=== PATIENT | male | born 1930 | race Caucasian/White ===

== ENCOUNTER → 2016-05-30 15:36 | Outpatient (CLI) | payer MEDICARE | END | disposition home or self-care (01) | LOC: D.LABREF 15:36 | DX: L98.9 Disorder of the skin and subcutaneous tissue, unspecified (principal) ==

== ENCOUNTER 2017-11-12 06:02 | Inpatient (IN) | payer MEDICARE ==
[2017-11-12] VITALS (22 sets, daily range): BP systolic 62–117; BP diastolic 46–71
[~2017-11-12] VITALS: Ht 177.8 cm; Wt 105.5 kg
--- NOTE | ~2017-11-12 | HP ---
PATIENT: NAZIA MARK MEDICAL RECORD: [id number] ACCOUNT: [id number] LOCATION:[facility] D.2310 : 29 ADMISSION DATE: 11/12/17 PCP: MARISSA CARRANZA DO HISTORY AND PHYSICAL EXAMINATION DATE OF ADMISSION: 11/12/2017 CHIEF COMPLAINT: Pain in the back. HISTORY OF PRESENT ILLNESS: The patient is an 87-year-old gentleman who lives alone. Apparently, he had fallen yesterday, reaching to get a glass of water, fell backwards. He did phone his niece, who brought him a walker over. The patient apparently called his niece at 4:30 this morning and states he was in excruciating pain. He presented to the Emergency Room, where he was found to have a T8 as well as a sacral fracture. It was felt the patient should be admitted. He was also found to have a sodium level of 114. PAST MEDICAL HISTORY: His past history is significant in that he has history of having atrial fibrillation. He has also had BPH. He has had a tonsillectomy. He has had cardioversion in 2014. He has also had history of chronic kidney disease. FAMILY HISTORY: Mother of brain tumor in her 50s. Father had prostate cancer, in his 80s. SOCIAL HISTORY: Born and raised in [place], [place]. 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 He did move from [facility] to [place] 3 years ago. He does live independently. HABITS: The patient states he had been a smoker and a drinker many years ago, but has stopped. ALLERGIES: No known drug allergies. MEDICATIONS: Include allopurinol 100 mg one p.o. daily, Cartia XT 120 mg once a day, finasteride 5 mg daily, sotalol 80 mg twice daily, and Flomax 0.4 mg daily. REVIEW OF SYSTEMS: CONSTITUTIONAL: He denies any headache, seizure, or syncope. Denies change in visual or auditory acuity. PULMONARY: He denies any shortness of breath, cough, congestion, history of TB, asthma, or bronchitis. CARDIOVASCULAR: He has had no chest pain, palpitation, PND, or orthopnea. GASTROINTESTINAL: No chronic nausea, vomiting, melena, or hematochezia. GENITOURINARY: No urgency, frequency, or dysuria. MUSCULOSKELETAL: He does report upper back pain as well as low back pain. PHYSICAL EXAMINATION: VITAL SIGNS: In the Emergency Room, the patient's temperature was 96.8, pulse 96, respirations 20, and blood pressure 117/58. GENERAL: He is alert. He is having somewhat slow mentation. He is oriented times 3. HEENT: His head is normocephalic. No lesions. Ears; TMs are clear. Eyes; pupils are equal, round, and reactive to light. His extraocular movements are intact. His nasal cavity, oral cavity, and oropharynx are clear. HISTORY AND PHYSICAL [id number] MARK,NAZIA H NECK: Supple. There is no adenopathy. HEART: Regular rate and rhythm without murmurs, gallops, or rubs. LUNGS: Clear. ABDOMEN: Soft. Bowel sounds positive. GENITAL: Deferred. RECTAL: Deferred. EXTREMITIES: He has no pretibial edema. He is somewhat tender in the mid thoracic area as well as the sacral region. LABORATORY DATA: The patient had a urinalysis which showed 2+ protein. He also had 2+ ketones and 2+ blood. He is followed by Dr. Carlo Shearer for his 2+ blood. He has 5-10 wbc's per high power field and many bacteria. White count is elevated at 21.2, hemoglobin 14.4, hematocrit 38.7, and his platelets are 185. Sodium was 114, his chloride was 80, potassium 5.1, CO2 was 24.5, BUN was 59, creatinine 1.9, blood sugar 125. Total bili is 1.62. ProBNP is 1429. Albumin is low at 2.9. DIAGNOSTIC DATA: The patient had multiple x-rays and CT of the head without contrast, revealed no acute intracranial abnormalities. Chronic small vessel changes in the periventricular white matter. 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 Chest x-ray shows left basilar atelectasis. No cardiomegaly. CT of the lumbar spine without contrast reveals fracture of the fifth segment of the sacrum. CT of the chest reveals cardiomegaly. Small bilateral pleural effusions are identified. Right basilar atelectasis. There is an ileus and abdominal aortic aneurysm measuring approximately 5 cm. 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 There are distentions of loops of large and small bowel with fluid filled. Mild compression fracture at T4. 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 PLAN: The patient is admitted for IV hydration. We will slowly correct his sodium. We will ask Dr. Jackson to see the patient regarding his abdominal as well as common iliac artery aneurysm. The patient will be placed on Levaquin 500 mg IV q. 24 hours and culture his urine. Pain medication will be given as well. Continue to evaluate the patient. He will have an echocardiogram. TRANSINT:[id number] Voice Confirmation ID: [id number] DOCUMENT ID: [id number] ABNER MCCLAIN MD CC: [id number] DICTATION DATE: 11/12/17 1055 GRANITE INSTALLER: 11/12/[address] [facility] [address] [place] [address]
[2017-11-12] MEDS ORDERED: FLOMAX0.4 MG PO (06:20)
[2017-11-12] MEDS ORDERED: ZYLOPRIM100 MG PO (06:20)
[2017-11-12] MEDS ORDERED: BACTRIM 400-801 TAB (06:21)
[2017-11-12] MEDS ORDERED: CARTIA XT120 MG (06:21)
[2017-11-12] MEDS ORDERED: PROSCAR5 MG PO (06:21)
[2017-11-12 06:38] LABS: HEMATOCRIT 38.7 % (42.0-54.0); HEMOGLOBIN 14.4 g/dL (13.5-17.5); MCH 31.5 pg (26.0-34.0); MCHC 37.2 g/dL (31.0-37.0); MCV 84.7 fL (80.0-100.0); MEAN PLATELET VOLUME 8.8 fL (7.4-10.4); PLATELET COUNT 185 10x3/uL (130-400); RBC 4.57 10x6/uL (4.20-6.10); RDW 13.5 % (11.5-14.5); WBC 21.2 10x3/uL (4.8-10.8)
[2017-11-12 06:54] LABS: ALBUMIN 2.9 g/dL (3.4-5.0); ALKALINE PHOSPHATASE 81 U/L (46-116); ALT (SGPT) 24 U/L (10-68); BILIRUBIN - TOTAL 1.62 mg/dL (0.2-1.3); CALCIUM 8.6 mg/dL (8.5-10.1); CARBON DIOXIDE 24.5 mmol/L (21.0-32.0); CREATININE - SERUM 1.9 mg/dL (0.6-1.3); GLUCOSE 125 mg/dL (74-106); POTASSIUM - SERUM 5.1 mmol/L (3.5-5.1); PRO BNP 1429 pg/mL (0-450); PROTEIN - SERUM 6.7 g/dL (6.4-8.2); UREA NITROGEN 59 mg/dL (7-18); eGFR NON AFRICAN AMERICAN 36 mL/min (90-120)
[2017-11-12 07:01] LABS: CALC OSMOLALITY 248 mosm/kg (275-300); CHLORIDE - SERUM 80 mmol/L (98-107); SODIUM 114 mmol/L (136-145); TROPONIN-I < 0.017 ng/mL (0.000-0.060)
[2017-11-12 08:00] LABS: APPEARANCE CLOUDY (CLEAR); BILIRUBIN NEGATIVE (NEGATIVE); COLOR YELLOW (YELLOW); GLUCOSE NEGATIVE (NEGATIVE); KETONE NEGATIVE (NEGATIVE); NITRITE NEGATIVE (NEGATIVE); PROTEIN 2+ mg/dL (NEGATIVE); UROBILINOGEN NORMAL (NORMAL)
[2017-11-12 08:03] LABS: AMORPHOUS SEDIMENT >1+ /lpf (NONE SEEN); BACTERIA MANY /hpf (NONE SEEN); EPITHELIAL CELLS 0-5 /hpf (0-5); MUCUS <1+ /lpf (NONE SEEN)
[2017-11-12 08:15] LABS: LYMPHOCYTES 7 % (15-50); MONOCYTES 1 % (2-11); NEUTROPHILS 90 % (40-80); PLATELET ESTIMATE NORMAL
[2017-11-13] VITALS (12 sets, daily range): BP systolic 75–109; BP diastolic 45–61; Ht 177.8 cm; Wt 105.5 kg
[2017-11-13 03:39] LABS: BASOPHILS 0 % (0-2); EOSINOPHILS 0 % (0-7); HEMATOCRIT 34.7 % (42.0-54.0); HEMOGLOBIN 12.4 g/dL (13.5-17.5); IMMATURE GRANULOCYTES 0.1 % (0-5); LYMPHOCYTES 9.7 % (15-50); MCH 30.7 pg (26.0-34.0); MCHC 35.7 g/dL (31.0-37.0); MCV 85.9 fL (80.0-100.0); NEUTROPHILS 83.2 % (40-80); PLATELET COUNT 174 10x3/uL (130-400); RBC 4.04 10x6/uL (4.20-6.10); RDW 13.5 % (11.5-14.5)
[2017-11-13 03:41] LABS: WBC 14.7 10x3/uL (4.8-10.8)
[2017-11-13 04:01] LABS: ANION GAP 12.9 mmol/L (8-16); CALCIUM 8.5 mg/dL (8.5-10.1); CARBON DIOXIDE 25.2 mmol/L (21.0-32.0); CREATININE - SERUM 2.1 mg/dL (0.6-1.3); POTASSIUM - SERUM 5.1 mmol/L (3.5-5.1)
== END 2017-11-13 14:51 | DRG 682 ==
LOC: D.ER 06:02 → D.M2 09:06 → D.ICU 14:00 → D.M2 11-13 09:15
PROVIDERS: Emergency Medicine; Family Medicine
PROC: 5A12012 Performance of Cardiac Output, Single, Manual (ICD-10-PCS; principal; 2017-11-12)
PROC: 0BH17EZ Insertion of Endotracheal Airway into Trachea, Via Natural or Artificial Opening (ICD-10-PCS; 2017-11-12)
PROC: 5A1935Z Respiratory Ventilation, Less than 24 Consecutive Hours (ICD-10-PCS; 2017-11-12)
DX: N17.9 Acute kidney failure, unspecified (principal); J96.00 Acute respiratory failure, unspecified whether with hypoxia or hypercapnia; R40.2314 Coma scale, best motor response, none, 24 hours or more after hospital admission; R40.2114 Coma scale, eyes open, never, 24 hours or more after hospital admission; R40.2214 Coma scale, best verbal response, none, 24 hours or more after hospital admission; E87.1 Hypo-osmolality and hyponatremia; S22.069A Unspecified fracture of T7-T8 vertebra, initial encounter for closed fracture; S32.2XXA Fracture of coccyx, initial encounter for closed fracture; K56.0 Paralytic ileus; W19.XXXA Unspecified fall, initial encounter; I71.4 Abdominal aortic aneurysm, without rupture; I72.3 Aneurysm of iliac artery; I10 Essential (primary) hypertension; I48.91 Unspecified atrial fibrillation; E66.01 Morbid (severe) obesity due to excess calories; Z68.33 Body mass index [BMI] 33.0-33.9, adult; Z66 Do not resuscitate; I95.9 Hypotension, unspecified; I46.9 Cardiac arrest, cause unspecified; I12.9 Hypertensive chronic kidney disease with stage 1 through stage 4 chronic kidney disease, or unspecified chronic kidney disease; N18.9 Chronic kidney disease, unspecified; N40.0 Benign prostatic hyperplasia without lower urinary tract symptoms; D72.829 Elevated white blood cell count, unspecified; Z87.891 Personal history of nicotine dependence